=== PATIENT | female | born 1980 ===

== ENCOUNTER 2021-06-20 15:10 | Outpatient (REF) | payer MEDICAID, OTHER, SELFPAY ==
[2021-06-20 15:33] LABS: COVID-19 Test Negative (Negative)
== END 2021-06-20 15:11 | disposition home or self-care (01) ==
LOC: HO.LAB 15:10
PROVIDERS: Visit Provider Internal Medicine
DX: Z20.822 Contact with and (suspected) exposure to COVID-19 (principal)
CPT/HCPCS: 87635; C9803

== ENCOUNTER 2022-01-15 13:41 | Emergency (ER) | payer MEDICAID, OTHER, SELFPAY ==
[2022-01-15 14:22] VITALS: BP 150/86; PULSE 71; RESP 16; TEMP 36.4; O2SAT 97; BMI 41.8
[2022-01-15 14:51] LABS: MANUAL DIFF FLAG NO
[2022-01-15 14:54] LABS: Basophils Percent Auto 0.5 % (0-2); Eosinophils Absolute Auto 0.2 X10*3/uL (0.0-0.4); Hematocrit 41.2 % (37.0-47.0); Hemoglobin 13.1 g/dl (12.0-16.0); Imm Gran Abs Auto 0.02 X10*3/uL (0.00-0.03); Imm Gran Pct Auto 0.2 % (0.0-0.4); Lymphocytes Absolute Auto 2.8 X10*3/uL (1.2-4.9); Lymphocytes Percent Auto 32.4 % (20-40); Mean Corpuscular HGB Conc 31.8 g/dl (31.0-35.0); Mean Platelet Volume 11.2 fL (9.4-12.3); Monocytes Absolute Auto 0.7 X10*3/uL (0.1-1.2); Monocytes Percent Auto 8.1 % (2-11); Neutrophils Absolute Auto 4.8 x10*3/uL (2.0-8.3); Neutrophils Percent Auto 56.8 % (45-73); Platelet Count 260 X10*3/uL (160-400); Red Blood Count 4.68 X10*6/uL (4.20-5.50); Red Cell Distribution Width 13.1 % (11.0-16.0); White Blood Count 8.5 X10*3/uL (4.8-10.8)
[2022-01-15 15:12] LABS: Anion Gap 13 (12-20); Blood Urea Nitrogen 10 mg/dL (9-16); Calcium 8.5 mg/dL (8.4-10.2); Carbon Dioxide 28 mmol/L (22-29); Chloride 103 mmol/L (96-108); Creatinine Clr Calc Pharmacy 130.6; Estimated Glomerular Filt Rate > 60; Glucose Random 306 mg/dL (60-115); Sodium 140 mmol/L (135-145)
[2022-01-15 19:44] VITALS: BP 143/86; PULSE 64; RESP 18; TEMP 36.7; O2SAT 99
--- NOTE | 2022-01-15 20:03 | ED.GENADULT ---
HPI - General Adult General Chief complaint: General Medical Stated complaint: diabetic, not feeling well Time Seen by Provider: 01/15/22 19:49 Source: patient Mode of arrival: ambulatory Limitations: no limitations History of Present Illness HPI narrative: Patient diabetic metformin which she has not taken 3 months as she moved [place]. Otherwise patient feels okay no active complaints blood sugar was 306 on arrival no nausea no vomiting abdominal pain patient daughter was positive with COVID patient not vaccinated against COVID also patient has chronic varicose veins in the left leg no acute increase in size or pain Related Data Previous Rx's Medication Instructions Recorded ibuprofen 600 mg tablet 600 mg PO Q6H PRN pain #40 tabs 01/15/22 metformin 1,000 mg tablet 1,000 mg PO BID #180 tabs 01/15/22 Allergies Allergy/AdvReac Type Severity Reaction Status Date / Time Penicillins Allergy Rash Verified 01/15/22 14:21 Review of Systems Review of Systems: Yes all other systems are reviewed and are negative [facility] Social History Social History Advance Directives: No Physical Exam ED Vital Signs: Vital Signs - 24 hr 01/15/22 14:22 01/15/22 19:44 Temperature 97.5 F 98.1 F Pulse Rate 71 64 Respiratory Rate 16 18 Blood Pressure 150/86 H 143/86 H Pulse Oximetry 97 99 Oxygen Delivery Method Room Air Room Air BMI result Body Mass Index 41.8 Appearance: Alert. Oriented X3. No acute distress. Obese Eyes: PERRLA, No Nystagmus ENT: Pharynx normal. Oral Mucosa moist Neck: Normal inspection. Neck supple. CVS: Normal heart rate and rhythm. Pulses normal. Respiratory: No respiratory distress. Equal air entry bilateral, no wheezing/rales/rhonchi Abdomen: Soft and nontender. Bowel sounds are present, no mass palpable, no CVA tenderness Skin: Skin warm and dry. Normal skin color. Normal skin turgor. Extremities: No lower extremity edema. No calf tenderness varicose veins left calf area no calf tenderness as such Neuro: Oriented X 3. No motor deficit. No sensory deficit.No cerebellar signs , cranial nerves II-XII intact Medical Decision Making MDM Narrative Medical decision making narrative: Patient with hyperglycemia secondary to diabetes type 2 discharge patient home on metformin will give ibuprofen for chronic leg pain Lab Data Lab results reviewed: Yes I reviewed the patient's lab results. Result diagrams: 01/15/22 14:40 01/15/22 14:40 Labs: Lab Results 01/15/22 01/15/22 01/15/22 Range/Units 14:40 14:40 19:56 WBC 8.5 (4.8-10.8) X10*3/uL RBC 4.68 (4.20-5.50) X10*6/uL Hgb 13.1 (12.0-16.0) g/dl Hct 41.2 (37.0-47.0) % MCV 88.0 (80.0-98.0) fL MCH 28.0 (27.0-33.0) pg MCHC 31.8 (31.0-35.0) g/dl RDW 13.1 (11.0-16.0) % Plt Count 260 (160-400) X10*3/uL MPV 11.2 (9.4-12.3) fL Immature Gran % (Auto) 0.2 (0.0-0.4) % Neut % (Auto) 56.8 (45-73) % Lymph % (Auto) 32.4 (20-40) % Turner % (Auto) 8.1 (2-11) % Eos % (Auto) 2.0 (0-4) % Baso % (Auto) 0.5 (0-2) % Lymph # (Auto) 2.8 (1.2-4.9) X10*3/uL Turner # (Auto) 0.7 (0.1-1.2) X10*3/uL Eos # (Auto) 0.2 (0.0-0.4) X10*3/uL Baso # (Auto) 0.0 (0.0-0.2) X10*3/uL Abs Immat Gran (auto) 0.02 (0.00-0.03) X10*3/uL Absolute Neuts (auto) 4.8 (2.0-8.3) x10*3/uL Absolute Nucleated RBC 0.000 (0.0-0.012) X10*3/uL Nucleated RBC % (auto) 0.0 (0.0-0.2) /100WBC Sodium 140 (135-145) mmol/L Potassium 4.0 (3.3-5.1) mmol/L Chloride 103 (96-108) mmol/L Carbon Dioxide 28 (22-29) mmol/L Anion Gap 13 (12-20) BUN 10 (9-16) mg/dL Creatinine 0.79 (0.5-1.4) mg/dL Estim Creat Clear Calc 130.6 Estimated GFR > 60 Random Glucose 306 H (60-115) mg/dL Calcium 8.5 (8.4-10.2) mg/dL COVID-19 (YVETTE) Negative (Negative) COVID-19 Clin Com See Note Discharge Plan Discharge Clinical Impression: Diabetes mellitus Patient Disposition: Home, Self-Care Instructions: Type 2 Diabetes Management for Adults (ED) Additional Instructions: Drink plenty of fluids Diet and exercise for weight reduction Take medication as prescribed and follow-up with your PCP Prescriptions: New metformin 1,000 mg tablet 1,000 mg PO BID Qty: 180 3RF ibuprofen 600 mg tablet 600 mg PO Q6H PRN (Reason: pain) Qty: 40 0RF Referrals: Roma Foster MD [Physician] - 1 week Interventions: ED Discharge Assessment Last Done: 01/15/22 20:42 Discharge Date/Time: 01/15/22 20:43
[2022-01-15 20:20] LABS: COVID-19 Test Negative (Negative); IDNOW Serial# 16C4AD1C
[2022-01-15] MEDS: metFORMIN HCl 1,000 MG TABLET 1000 MG PO (20:40)
[2022-01-15] MEDS: Ibuprofen 600 MG TABLET 800 MG PO (20:40)
== END 2022-01-15 20:43 | disposition home or self-care (01) ==
PROVIDERS: Emergency Provider Internal Medicine
DX: E11.9 Type 2 diabetes mellitus without complications (principal); Z79.84 Long term (current) use of oral hypoglycemic drugs; Z79.899 Other long term (current) drug therapy
CPT/HCPCS: 36415; 80048; 85025; 87635; 99283

== ENCOUNTER 2022-09-17 07:45 | Emergency (ER) | payer MEDICAID, OTHER, SELFPAY ==
--- NOTE | ~2022-09-17 | XR_ITS ---
EXAMINATION: XR KNEE, LEFT CLINICAL INFORMATION: Left knee pain. COMPARISON: None available. TECHNIQUE: Four views of the left knee. FINDINGS: There is mild loss of medial and patellofemoral compartment joint space with moderate periarticular spurring. A tiny calcification or loose body is seen in the lateral compartment on AP view. Mild suprapatellar joint effusion seen. No bony erosive changes. XR/XR knee LT 4V IMPRESSION: 1. Degenerative arthritic changes medial and patellofemoral compartment with moderate periarticular spurring. 2. Small calcification or loose body in the lateral compartment. 3. Mild suprapatellar joint effusion.
--- NOTE | ~2022-09-17 | US_ITS ---
EXAMINATION: US VENOUS ULTRASOUND WITH DOPPLER LOWER EXTREMITY, LEFT CLINICAL INFORMATION: Left leg pain. COMPARISON: None available. TECHNIQUE: Ultrasound of the deep veins is performed from the hip to the calf with compression sonography and color and pulse Doppler assessment. Spectral analysis with color-flow imaging is performed. FINDINGS: There is normal venous compression and respiratory variation and augmented flow. The visualized common femoral vein, superficial femoral vein, profunda femoral vein, popliteal vein, and the trifurcation region shows no evidence of deep venous thrombosis. No Weber's cyst is seen. US/US venous duplex LE LT IMPRESSION: No DVT demonstrated in the left lower extremity.
[2022-09-17 07:58] VITALS: BP 141/75; PULSE 75; RESP 18; TEMP 36.6; O2SAT 97; BMI 38.0
--- NOTE | 2022-09-17 08:11 | ED_ITS ---
HPI - General Adult General Chief complaint: Extremity Problem Stated complaint: Left Leg Knee Pain No Injury Time Seen by Provider: 09/17/22 07:50 Source: patient Limitations: no limitations History of Present Illness HPI narrative: This is a 41 years old patient presented to emergency department complaining of left knee pain atraumatic, she denies any fever chills. The symptoms have been ongoing for 4 days, she came via car ambulatory to the ED Onset (ago): day(s) (4) Location: left and lower extremity Radiation: non-radiation Severity: moderate Relieving factors: none Exacerbating factors: movement Associated symptoms: denies other symptoms Related Data Previous Rx's Medication Instructions Recorded ibuprofen 600 mg tablet 600 mg PO Q6H PRN pain #40 tabs 01/15/22 metformin 1,000 mg tablet 1,000 mg PO BID #180 tabs 01/15/22 ibuprofen 800 mg tablet 800 mg PO Q8H PRN pain #20 tabs 09/17/22 Allergies Allergy/AdvReac Type Severity Reaction Status Date / Time Penicillins Allergy Rash Verified 09/17/22 07:58 Review of Systems Constitutional: Constitutional: Reports no additional constitutional complaints ENT: Reports system reviewed and no additional complaints, except as documented Cardiovascular: Cardiovascular: Reports no additional cardiovascular complaints PMFSH Past Medical History PMFSH Narrative: Type 2 diabetes Social History Social History Smoked in Last 30 Days: No Use of substances other than those prescribed or required for medical reasons: No Advance Directives: No Patient : No Physical Exam ED Vital Signs: Vital Signs - 24 hr 09/17/22 07:58 09/17/22 08:28 09/17/22 11:34 Temperature 97.8 F 98.1 F Pulse Rate 75 65 Respiratory Rate 18 18 16 Blood Pressure 141/75 H 148/64 H 146/81 H Pulse Oximetry 97 98 99 Oxygen Delivery Method Room Air Room Air Room Air BMI result Body Mass Index 38.0 Const General: cooperative Nutritional Appearance: well nourished Orientation/consciousness: patient oriented x3 Limitations: no limitations HENMT Head: Yes normal to inspection Ears: hearing grossly normal bilaterally General nose exam: Normal external nose present Face and sinus: Yes normal facial exam Neck Neck: Yes normal visual inspection Chest Chest palpation & inspection: normal inspection of the chest Resp Effort & Inspection: normal respiratory effort Cardio Rate: regular rate GI Inspection: Yes normal to inspection Skin General skin exam: no rashes or lesions noted Neuro General: patient oriented x3 Extrem Other: Examination the left lower extremity shows no effusion knee he is stable negative Prema test negative anterior drawer test, no redness seen, good pulses in the foot Medications Administered Discontinued Medications Generic Name Dose Route Start Last Admin Trade Name Freq PRN Reason Stop Dose Admin Ibuprofen 800 mg 09/17/22 09:28 09/17/22 09:32 Ibuprofen 800 Mg Tablet PO 09/17/22 09:29 800 mg ONCE ONE Administration Medical Decision Making Medical Decision Making [facility] Narrative: Patient presented with left knee pain and going to get an x-ray of the knee, also get an ultrasound to rule out DVT, the pain is at traumatic Differential Diagnosis Differential Diagnoses: The differential diagnosis associated with the presentation includes Meniscal injury/knee effusion/DVT Independent Interpretation I performed an independent interpretation of an: Plain X-Ray and Ultrasound Interpretation: PLAIN X-RAY WAS READ BY ME HEBER NO FRACTURE NO EFFUSION Radiology Impression Discussion of test interpretation with radiology: I have reviewed the radiologist's reading. Radiologist Impression: None available. TECHNIQUE: Ultrasound of the deep veins is performed from the hip to the calf with compression sonography and color and pulse Doppler assessment. Spectral analysis with color-flow imaging is performed. FINDINGS: There is normal venous compression and respiratory variation and augmented flow. The visualized common femoral vein, superficial femoral vein, profunda femoral vein, popliteal vein, and the trifurcation region shows no evidence of deep venous thrombosis. No Weber's cyst is seen. US/US venous duplex LE LT IMPRESSION: No DVT demonstrated in the left lower extremity. Dictated By: Olaf Tran Signed By: <Electronically signed by Olaf? Marc in OV> 09/17/22 0957 Independent Historian Clinical information obtained from an independent historian. History obtained from or confirmed by: Friend Prescription Management I considered prescription management with: Pain Medication Discharge Plan Discharge Clinical Impression: Acute knee pain Patient Disposition: Home, Self-Care Instructions: Knee Pain (ED) Additional Instructions: FOLLOW-UP WITH ORTHOPEDIST CALL AND MAKE AN APPOINTMENT RETURN IF YOU WORSE Prescriptions: New ibuprofen 800 mg tablet 800 mg PO Q8H PRN (Reason: pain) Qty: 20 0RF Rx Instructions: TAKE EVERY 8 H NEEDED FOR KNEE PAIN No Action metformin 1,000 mg tablet 1,000 mg PO BID Qty: 180 3RF ibuprofen 600 mg tablet 600 mg PO Q6H PRN (Reason: pain) Qty: 40 0RF Referrals: Phi Iverson MD [Physician] - 2 days
[2022-09-17 08:28] VITALS: BP 148/64; RESP 18; TEMP 36.7; O2SAT 98
[2022-09-17] MEDS: Ibuprofen 800 MG TABLET PO (09:32)
[2022-09-17 11:34] VITALS: BP 146/81; PULSE 65; RESP 16; O2SAT 99
== END 2022-09-17 12:43 | disposition home or self-care (01) ==
PROVIDERS: Emergency Provider Emergency Medicine
DX: M25.562 Pain in left knee (principal); M79.662 Pain in left lower leg; Z79.84 Long term (current) use of oral hypoglycemic drugs; Z79.899 Other long term (current) drug therapy
CPT/HCPCS: 73564; 93971; 99284

== ENCOUNTER 2022-10-21 07:06 | Outpatient (REF) | payer MEDICAID, OTHER, SELFPAY ==
--- NOTE | ~2022-10-21 | XR_ITS ---
EXAMINATION:. XR KNEE AP STANDING CLINICAL INFORMATION: Bilateral knee pain COMPARISON: 09/17/2022 TECHNIQUE: AP bilateral standing view of the knees was obtained. Left knee patella view. [place] view left knee. FINDINGS: AP standing view of both knees demonstrates severe narrowing of the medial joint space compartment of the right knee. The lateral joint space compartment is maintained. Marginal spurring is seen about the medial and lateral joint space compartments. Views of the left knee demonstrate medial and lateral joint space compartments to be maintained. There is marginal spurring seen about the lateral joint space compartment. There is a 6 mm smoothly circumscribed density consistent with a loose body present. There is prominent spurring at the patellofemoral joint involving both medial and lateral facets. XR/XR knee LT 1V IMPRESSION: 1. Significant degenerative change of the medial aspect of the right knee on single AP standing view. 2. A 6 mm bony density overlying the left knee joint space possibly representing a loose body. Prominent patellofemoral joint degenerative change, left knee.
--- NOTE | ~2022-10-21 | XR_ITS ---
EXAMINATION:. XR KNEE AP STANDING CLINICAL INFORMATION: Bilateral knee pain COMPARISON: 09/17/2022 TECHNIQUE: AP bilateral standing view of the knees was obtained. Left knee patella view. [place] view left knee. FINDINGS: AP standing view of both knees demonstrates severe narrowing of the medial joint space compartment of the right knee. The lateral joint space compartment is maintained. Marginal spurring is seen about the medial and lateral joint space compartments. Views of the left knee demonstrate medial and lateral joint space compartments to be maintained. There is marginal spurring seen about the lateral joint space compartment. There is a 6 mm smoothly circumscribed density consistent with a loose body present. There is prominent spurring at the patellofemoral joint involving both medial and lateral facets. XR/XR knee standing BI IMPRESSION: 1. Significant degenerative change of the medial aspect of the right knee on single AP standing view. 2. A 6 mm bony density overlying the left knee joint space possibly representing a loose body. Prominent patellofemoral joint degenerative change, left knee.
== END 2022-10-21 07:07 | disposition home or self-care (01) ==
LOC: HO.HOSX 07:06
PROVIDERS: Visit Provider Physician Assistant
DX: M17.12 Unilateral primary osteoarthritis, left knee (principal); M25.561 Pain in right knee
CPT/HCPCS: 20610; 73560; 73565; 99202; J1040

== ENCOUNTER 2022-11-26 16:58 | Outpatient (RCR) | payer MEDICAID, OTHER, SELFPAY ==
--- NOTE | 2022-11-27 08:03 | MHC.PT.EP ---
[facility] [place] Office [place] Office [place] Office [address] [phone] F: [phone] F: [phone] F: [phone] F: [phone] Physical Therapy Plan of Care Date of Evaluation: Date of Surgery: N/A Diagnosis: unilateral osteoarthritis, left knee Assessment: Pt is a pleasant 42yo F who presents to PT with L knee pain for about ~4 months. Pt presents to PT with current impairments in pain, decreased L knee ROM, decreased quad strength, decreased hip/glute strength, genu valgum, and impaired gait. She is limited functionally by sitting>standing, stairs, prolonged walking, and bending/squatting. She is an excellent candidate for skilled PT in order to address current impairments to facilitate return to PLOF. She is recommended to be seen 2x/week for 4 weeks and will be reassessed at that time. Frequency and Duration: The patient will be seen 2x/week for 4 weeks Short Term Goals: Pt will be I with HEP to promote self management of symptoms Pt will improve L quad strength by 1/2 grade Group Home Goals: Pt will perform sit>stand transitions with minimal to no pain consistently Pt will demonstrate ability to squat and pick object up from floor with minimal to no pain Pt will perform standing and walking on even and uneven surfaces > 20 min with minimal to no discomfort Treatment Plan: Modalities to reduce pain, spasms and effusion. Manual therapy to restore motion and function. Therapeutic exercise to improve strength and flexibility. Neuromuscular re-education for posture and balance. Therapeutic activities to return to functional activities of daily living. Electronically signed by: Elsi Rodriguez, PT, DPT Please sign and return to therapist. Thank you for your referral.
--- NOTE | 2023-01-17 13:42 | MHC.PT.DC ---
[facility] [place] Office [place] Office [place] Office [address] Jair Hernandez [address] [phone] F: [phone] F: [phone] F: [phone] F: [phone] Physical Therapy Discharge Report Diagnosis: unilateral osteoarthritis, left knee Date of Surgery: N/A Date of Evaluation: 11/26/22 Date of Discharge: 01/17/23 Treatments to Date: 1 Cancellations to Date: No Shows to Date: Discharge Status: Discharge Summary: Pt was evaluated for PT on 11/26/22. She has not attended since initial PT evaluation. Pt is being D/C from skilled PT as she has not attended in > 30 days. Pt current level of function unknown at this time. Electronically signed by: Elsi Rodriguez, PT, DPT Please sign and return to therapist. Thank you for your referral.
== END 2023-01-17 13:42 | disposition home or self-care (01) ==
LOC: HO.PT 16:58
PROVIDERS: Visit Provider Physician Assistant
DX: M17.12 Unilateral primary osteoarthritis, left knee (principal)
CPT/HCPCS: 97110; 97161

== ENCOUNTER 2023-01-13 10:01 | Outpatient (REF) | payer MEDICAID, OTHER, SELFPAY ==
[2023-01-13 11:50] LABS: MANUAL DIFF FLAG NO
[2023-01-13 12:13] LABS: Basophils Absolute Auto 0.1 X10*3/uL (0.0-0.2); Basophils Percent Auto 0.7 % (0-2); Eosinophils Absolute Auto 0.3 X10*3/uL (0.0-0.4); Eosinophils Percent Auto 4.5 % (0-4); Hematocrit 40.4 % (37.0-47.0); Hemoglobin 13.1 g/dl (12.0-16.0); Imm Gran Abs Auto 0.02 X10*3/uL (0.00-0.03); Imm Gran Pct Auto 0.3 % (0.0-0.4); Lymphocytes Absolute Auto 2.7 X10*3/uL (1.2-4.9); Lymphocytes Percent Auto 35.6 % (20-40); Mean Corpuscular HGB Conc 32.4 g/dl (31.0-35.0); Mean Corpuscular Hemoglobin 28.8 pg (27.0-33.0); Mean Corpuscular Volume 88.8 fL (80.0-98.0); Mean Platelet Volume 11.1 fL (9.4-12.3); Monocytes Absolute Auto 0.7 X10*3/uL (0.1-1.2); Monocytes Percent Auto 9.9 % (2-11); Neutrophils Absolute Auto 3.7 x10*3/uL (2.0-8.3); Platelet Count 244 X10*3/uL (160-400); Red Blood Count 4.55 X10*6/uL (4.20-5.50); Red Cell Distribution Width 13.1 % (11.0-16.0); White Blood Count 7.5 X10*3/uL (4.8-10.8)
[2023-01-13 14:40] LABS: Alanine Aminotransferase 9 U/L (0-31); Albumin Level 3.6 g/dL (3.5-5.0); Alkaline Phosphatase 80 U/L (39-117); Anion Gap 12 (12-20); Aspartate Amino Transferase 14 U/L (5-31); Bilirubin Direct 0.1 mg/dL (0.0-0.5); Bilirubin Total 0.4 mg/dL (0.0-1.0); Blood Urea Nitrogen 11 mg/dL (9-16); Calcium 8.5 mg/dL (8.4-10.2); Carbon Dioxide 28 mmol/L (22-29); Chloride 103 mmol/L (96-108); Cholesterol 172 mg/dL; Estimated Glomerular Filt Rate > 60; Glucose Random 142 mg/dL (60-115); HDL Cholesterol 52 mg/dL; LDL Cholesterol Calculated 103 mg/dl; Potassium 3.7 mmol/L (3.3-5.1); Sodium 139 mmol/L (135-145); Total Protein 6.8 g/dL (6.5-8.0); Triglycerides 88 mg/dL
[2023-01-13 14:58] LABS: TSH reflex Free T4 2.96 uIU/mL (0.32-4.0)
[2023-01-14 04:59] LABS: HBc Num1 0.11 S/CO (0.00-0.79); HIV AB/AG Nonreactive (Nonreactive); HIV Num 1 0.05 S/CO (0.00-0.99); Hepatitis A Antibody IgM 0.25 Index (0-0.79); Hepatitis B Core Antibody Nonreactive (Nonreactive); Hepatitis B Surface Antigen Negative (Negative); ~HepC Num1 0.11 S/CO (0.00-0.79); ~Hepatitis A Antibody IgM Nonreactive (Nonreactive); ~Hepatitis B Surface Antibody NONREACTIVE (Nonreactive); ~Hepatitis C Antibody Nonreactive (Nonreactive)
[2023-01-14 05:06] LABS: ~Hepatitis C Antibody Nonreactive (Nonreactive)
== END 2023-01-13 10:02 | disposition home or self-care (01) ==
LOC: HO.HHCL 10:01
PROVIDERS: Visit Provider Pediatrics
DX: Z11.4 Encounter for screening for human immunodeficiency virus [HIV] (principal); E11.9 Type 2 diabetes mellitus without complications
CPT/HCPCS: 36415; 80048; 80061; 80076; 84443; 85025; 86704; 86706; 86709; 86803; 87340; 87389

== ENCOUNTER 2023-03-06 09:07 | Outpatient (AMB) | payer SELFPAY ==
--- NOTE | 2023-03-06 09:12 | MHC.OFFVIS ---
Intake Vital Signs 03/06/23 09:14 Height 5 ft 8 in Weight 250 lb BMI 38.0 Intake Visit Reasons: ov-Osteoarthritis of left knee Intake Note: Azra 41 year old female who presents today for a follow up left knee OA, last injection 10/21/22. Patient reports injection provided relief for about 3 months. States the past 2 weeks she has been having pain and welling. She is requesting to repeat injection. She attended PT that provided some relief. Allergies Penicillins Allergy (Verified 10/21/22 12:37) Rash HPI ov-Osteoarthritis of left knee HPI Details 42-year-old female who returns to the office today for a follow-up of left knee pain. She states she has pain and swelling in her knee for the past 2 weeks. After having the injection she has been able to participate in daily activities. She did attend a few visits of PT. She takes Tylenol for her pain with mild relief. She had her last injection 10/21/22 which provided her relief for about 3 months. She has a history of diabetes. Her sugar level is currently controlled. 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 Review of Systems Const All systems reviewed & are unremarkable except as noted in HPI and below Physical Exam Vital Signs: BMI result Body Mass Index 38.0 Const General: cooperative, healthy appearing, comfortable, no acute distress, well developed and alert Orientation/consciousness: patient oriented x3 HEENT Head: Yes normal to inspection, Yes normocephalic and Yes atraumatic Eyes General: appearance normal, both eyes and all related structures Resp Effort & Inspection: normal respiratory effort and able to speak in complete sentences Cardio Rate: regular rate Peripheral pulses: Peripheral pulses 2+ throughout GI Palpation (GI): Soft to palpation Skin Lesions: no lesions Rashes: no rashes Neuro General: patient oriented x3 Extrem Other: Left knee skin intact, no erythema or joint effusion. Tenderness along the lateral joint line. Full ROM with crepitus. Negative Vaishali?s. No ligamentous laxity. NVI. Office Procedures Joint Injection/Drain Joint Injection/Drain Primary Site: left knee Prep: site was prepped using aseptic technique, ethochloride spray was applied and injection warnings given Injected: 80 mg of, DepoMedrol, with 8 mL of, 1% plain lidocaine and in the joint Approach Used: anterolateral Procedure: The patient tolerated the procedure well and there was some relief with the local anesthesia Coding 14120 - Glenohumeral/Tronchanteric Bursa/Intraarticular Procedure code (CPT) selection complete Results Reviewed Results Reviewed: 03/06/23 09:23 Lidocaine HCl 2 % MPF [Xylocaine 2 % MPF] 5 ml .ROUTE .STK-MED ONE methylPREDNISolone acetate [DEPO-MedroL] 80 mg .ROUTE .STK-MED ONE Assessment & Plan Assessment & Plan (1) Osteoarthritis of left knee: Code(s): M17.12 - Unilateral primary osteoarthritis, left knee Qualifiers: Osteoarthritis type: primary Qualified Code(s): M17.12 - Unilateral primary osteoarthritis, left knee Plan We discussed options today which include steroid injection. They did consent to move forward with the injection, which was tolerated well. I recommended rest, ice and elevation and OTC anti-inflammatories PRN for discomfort. She was also given a handout of home exercises in the office today. We discussed their diabetes and the effect the steroid can have on their blood glucose levels; therefore, they will continue to monitor these very closely over the next 72 hours. If there are any concerns, they should report to the ED immediately. Medications: Refilled ibuprofen TAKE EVERY 8 H NEEDED FOR KNEE PAIN 800 mg PO Q8H PRN 20 tabs 0RF pain Patient Instructions: Scribed for Piper Camacho PA-C, by Omari uTcker medical donation professional, on 03/06/2023 at 9:15 AM SHIRAZ. Piper Solares PA-C, have personally reviewed and agree with the information entered by the scribe. Coding Level of Care Code Est Pt Level 3 (22139) Diagnoses Primary osteoarthritis of left knee M17.12 Osteoarthritis type: primary CPT Codes Coding - Joint 7: 09967 - Glenohumeral/Tronchanteric Bursa/Intraarticular ([id number])
[2023-03-06 09:14] VITALS: BMI 38.0
== END 2023-03-06 09:52 | disposition home or self-care (01) ==
PROVIDERS: Visit Provider Physician Assistant
DX: M17.12 Unilateral primary osteoarthritis, left knee (principal)
CPT/HCPCS: 20610; 99213

== ENCOUNTER → 2023-03-06 09:07 | Outpatient (BNVA) | payer MEDICAID, OTHER, SELFPAY | PROVIDERS: Visit Provider Physician Assistant | DX: M17.12 Unilateral primary osteoarthritis, left knee (principal) | CPT/HCPCS: 20610; 99212; J1040 ==

== ENCOUNTER 2023-10-16 11:41 | Outpatient (REF) | payer MEDICAID, OTHER, SELFPAY ==
[2023-10-16 13:02] LABS: MANUAL DIFF FLAG NO
[2023-10-16 13:12] LABS: Basophils Percent Auto 0.5 % (0-2); Eosinophils Absolute Auto 0.2 X10*3/uL (0.0-0.4); Eosinophils Percent Auto 2.2 % (0-4); Hematocrit 40.8 % (37.0-47.0); Hemoglobin 13.6 g/dl (12.0-16.0); Imm Gran Abs Auto 0.05 X10*3/uL (0.00-0.03); Imm Gran Pct Auto 0.6 % (0.0-0.4); Lymphocytes Absolute Auto 2.9 X10*3/uL (1.2-4.9); Lymphocytes Percent Auto 33.3 % (20-40); Mean Corpuscular HGB Conc 33.3 g/dl (31.0-35.0); Mean Corpuscular Hemoglobin 29.6 pg (27.0-33.0); Mean Corpuscular Volume 88.9 fL (80.0-98.0); Mean Platelet Volume 11.2 fL (9.4-12.3); Monocytes Absolute Auto 0.8 X10*3/uL (0.1-1.2); Monocytes Percent Auto 9.3 % (2-11); Neutrophils Absolute Auto 4.6 x10*3/uL (2.0-8.3); Neutrophils Percent Auto 54.1 % (45-73); Platelet Count 256 X10*3/uL (160-400); Red Blood Count 4.59 X10*6/uL (4.20-5.50); Red Cell Distribution Width 13.2 % (11.0-16.0); White Blood Count 8.6 X10*3/uL (4.8-10.8)
[2023-10-16 13:48] LABS: Alanine Aminotransferase 10 U/L (0-31); Albumin Level 3.8 g/dL (3.5-5.0); Alkaline Phosphatase 87 U/L (39-117); Anion Gap 14 (12-20); Aspartate Amino Transferase 14 U/L (5-31); Bilirubin Total 0.4 mg/dL (0.0-1.0); Blood Urea Nitrogen 8 mg/dL (9-16); Calcium 8.7 mg/dL (8.4-10.2); Carbon Dioxide 25 mmol/L (22-29); Chloride 104 mmol/L (96-108); Cholesterol 168 mg/dL (<200); Estimated Glomerular Filt Rate > 60; Glucose Random 179 mg/dL (60-115); HDL Cholesterol 56 mg/dL (>40); LDL Cholesterol Calculated 97 mg/dL (<100); Potassium 4.1 mmol/L (3.3-5.1); Sodium 139 mmol/L (135-145); Total Protein 6.9 g/dL (6.5-8.0); Triglycerides 79 mg/dL (<150)
[2023-10-16 14:02] LABS: Reflex LDLD? No
[2023-10-16 14:05] LABS: Folate 14.2 ng/mL (> or = 4.0); Vitamin B12 367 pg/mL (200-900)
[2023-10-16 14:06] LABS: TSH reflex Free T4 1.02 uIU/mL (0.32-4.0)
[2023-10-17 08:48] LABS: Follicle Stimulating Hormone 5.3 mIU/mL
[2023-10-23 23:18] LABS: Estradiol Ultra Sensitive 15 pg/mL
== END 2023-10-16 11:42 | disposition home or self-care (01) ==
LOC: HO.HHCL 11:41
PROVIDERS: Visit Provider Family Medicine
DX: N93.9 Abnormal uterine and vaginal bleeding, unspecified (principal); E11.69 Type 2 diabetes mellitus with other specified complication
CPT/HCPCS: 36415; 80053; 80061; 82607; 82670; 82746; 83001; 84443; 85025

== ENCOUNTER 2023-12-29 13:26 | Outpatient (AMB) | payer SELFPAY ==
[2023-12-29 13:33] VITALS: BMI 38.0
--- NOTE | 2023-12-29 13:34 | MHC.OFFVIS ---
Vital Signs 12/29/23 13:33 Height 5 ft 8 in Weight 250 lb BMI 38.0 Intake Visit Reasons: OV- LT knee osteoarthritis , wants INJ Intake Note: Azra is a 43 yo right hand dominant female who presents today for left knee OA. Patient states would like to repeat cortisone injection today. Last injected 03/06/23. Allergies Penicillins Allergy (Verified 12/29/23 13:36) Rash HPI HPI OV- LT knee osteoarthritis , wants INJ: Details: Azra is a 43-year-old female who presents today for a follow-up of left knee osteoarthritis. She would like to repeat the cortisone injection. Last injection was given on 03/06/2023. 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 Review of Systems Const All systems reviewed & are unremarkable except as noted in HPI and below Physical Exam Vital Signs: BMI result Body Mass Index 38.0 Const General: cooperative, healthy appearing, comfortable and no acute distress Orientation/consciousness: patient oriented x3 HEENT Head: Yes normal to inspection, Yes normocephalic and Yes atraumatic Eyes General: appearance normal, both eyes and all related structures Neck Neck: Yes normal visual inspection and Yes no JVD Chest Chest palpation & inspection: normal inspection of the chest Resp Effort & Inspection: normal respiratory effort Auscultation: clear to auscultation bilaterally, crackles (no), rales (no), rhonchi (no) and wheezes (no) Cardio Jugular venous distension: no JVD Rate: regular rate Rhythm: regular rhythm Heart sounds: S1 normal heart sound present, S2 normal heart sound present, Murmur heart sound present (no) and Rub heart sound present (no) Peripheral pulses: Peripheral pulses 2+ throughout GI Palpation (GI): Soft to palpation Skin Lesions: no lesions Rashes: no rashes Neuro General: patient oriented x3 Extrem Other: Left knee skin intact, no erythema or joint effusion. Tenderness along the lateral joint line. Full ROM with crepitus. Negative Vaishali?s. No ligamentous laxity. NVI. General: Yes normal to inspection, Yes no pedal edema and Yes no calf tenderness Psych Appearance: grossly normal Mental Status: mental status grossly normal Speech and movement: Normal speech and movement present Office Procedures Joint Injection/Aspiration Joint Injection/Aspiration Primary Site: left knee Prep: site was prepped using aseptic technique, ethochloride spray was applied and injection warnings given Injected: 40 mg of, DepoMedrol, with 8 mL of, 1% plain lidocaine and in the joint Approach Used: anterolateral Procedure: The patient tolerated the procedure well and there was some relief with the local anesthesia Coding 88260 - Glenohumeral/Tronchanteric Bursa/Intraarticular Procedure code (CPT) selection complete Assessment & Plan Assessment & Plan (1) Osteoarthritis of left knee: Code(s): M17.12 - Unilateral primary osteoarthritis, left knee Category: Medical Qualifiers: Osteoarthritis type: primary Qualified Code(s): M17.12 - Unilateral primary osteoarthritis, left knee Plan We discussed options today, which include cortisone injection. The patient did consent to move forward with the left knee cortisone injection, which was tolerated well. I recommended rest, ice, and elevation and OTC anti-inflammatories as needed for discomfort. If symptoms persist over the next 6-8 weeks, they will contact the office, otherwise as needed. Patient Instructions: Scribed for Piper Camacho PA-C, by Jed Zuleta medical historian, on 12/29/2023 at 1:30 PM EST. IPiper PA-C, have personally reviewed and agree with the information entered by the scribe. Coding Level of Care Code Est Pt Level 3 (28495) Diagnoses Primary osteoarthritis of left knee M17.12 Osteoarthritis type: primary CPT Codes Coding - Joint 7: 03018 - Glenohumeral/Tronchanteric Bursa/Intraarticular ([id number])
== END 2023-12-29 14:01 | disposition home or self-care (01) ==
PROVIDERS: PCP Family Medicine; Visit Provider Physician Assistant
DX: M17.12 Unilateral primary osteoarthritis, left knee (principal)
CPT/HCPCS: 20610; 99213

== ENCOUNTER → 2023-12-29 13:26 | Outpatient (BNVA) | payer MEDICAID, OTHER, SELFPAY | PROVIDERS: PCP Family Medicine; Visit Provider Physician Assistant | DX: M17.12 Unilateral primary osteoarthritis, left knee (principal) | CPT/HCPCS: 20610; 99212; J1010 ==

== ENCOUNTER → 2024-01-12 15:45 | Outpatient (BNV) | payer SELFPAY | PROVIDERS: PCP Family Medicine; Visit Provider Radiology Diagnostic Radiology | DX: Z12.31 Encounter for screening mammogram for malignant neoplasm of breast (principal) | CPT/HCPCS: 77063; 77067 ==

== ENCOUNTER 2024-01-12 16:09 | Outpatient (REF) | payer SELFPAY ==
--- NOTE | ~2024-01-12 | MM_ITS ---
EXAMINATION: MM SCREENING DIGITAL BREAST TOMOSYNTHESIS, BILATERAL CLINICAL INFORMATION: Screening. Asymptomatic. COMPARISON: Mammography: This is a baseline study. TECHNIQUE: Digital breast tomosynthesis is performed in both the craniocaudal and mediolateral oblique views along with computer-aided detection (CAD). Synthesized 2D images are generated from the tomosynthesis. FINDINGS: The breasts are almost entirely fatty (ACR BI-RADS breast composition Category a). There are no significant masses, abnormal calcifications, or other abnormalities. MM/MM tomosynthesis screening BI IMPRESSION: No mammographic evidence of malignancy. ASSESSMENT: BI-RADS BI-RADS 1 - Negative RECOMMENDATION: Routine annual mammography screening. 1 year F/U This examination should not preclude the clinical evaluation of a suspicious palpable abnormality. This patient's information was entered into a reminder system with a target due date for their next mammogram.
== END 2024-01-12 16:10 | disposition home or self-care (01) ==
LOC: HO.MAMMO 16:09
PROVIDERS: PCP Family Medicine; Visit Provider Family Medicine
DX: Z12.31 Encounter for screening mammogram for malignant neoplasm of breast (principal)
CPT/HCPCS: 77063; 77067

== ENCOUNTER 2024-08-02 12:32 | Outpatient (REF) | payer MEDICAID, OTHER, SELFPAY ==
[2024-08-02 13:13] LABS: Appearance Urine Clear; Color Urine Yellow; Glucose Urine UA Negative (Negative); Leukocyte Esterase Urine Negative (Negative); Nitrite Urine Negative (Negative); PH 5.5 (5.0-9.0); Specific Gravity - Urine 1.025 (1.005-1.025); Urine Blood Negative (Negative); Urine Ketones Negative (Negative); Urine Protein Negative (Neg-Trace)
[2024-08-02 13:20] LABS: Bacteria Urine None Seen (None Seen); Hyaline Casts Urine 0-2 /LPF (0-2); RBC Urine 0-2 /HPF (0-2); Squamous Epithelial Cell Urine 0-2 /HPF (0-2); WBC Urine 0-5 /HPF (0-5)
[2024-08-02 13:41] LABS: Creatinine Urine 124.58 mg/dL; Microalbum/Creatinine Ratio Ur 7.2 ug/mg cr (<30)
[2024-08-02 13:52] LABS: Alanine Aminotransferase 13 U/L (0-31); Albumin Level 3.8 g/dL (3.5-5.0); Alkaline Phosphatase 94 U/L (39-117); Anion Gap 12 (12-20); Aspartate Amino Transferase 20 U/L (5-31); Bilirubin Total 0.2 mg/dL (0.0-1.0); Blood Urea Nitrogen 11 mg/dL (9-16); Calcium 8.7 mg/dL (8.4-10.2); Carbon Dioxide 28 mmol/L (22-29); Chloride 104 mmol/L (96-108); Cholesterol 185 mg/dL (<200); Estimated Glomerular Filt Rate > 60; Glucose Random 116 mg/dL (60-115); HDL Cholesterol 58 mg/dL (>40); LDL Cholesterol Calculated 109 mg/dL (<100); Potassium 3.7 mmol/L (3.3-5.1); Sodium 140 mmol/L (135-145); Total Protein 7.4 g/dL (6.5-8.0); Triglycerides 94 mg/dL (<150)
[2024-08-02 14:01] LABS: TSH reflex Free T4 1.46 uIU/mL (0.32-4.0); Vitamin D 25-OH Total 21.1 ng/mL (>30)
[2024-08-02 14:15] LABS: Vitamin B12 360 pg/mL (200-900)
[2024-08-02 14:23] LABS: Reflex LDLD? No
--- OUTSIDE RECORDS SUMMARY | 2024-08-02 14:41 | XMS_ITS | Encounter Summary ---
Author Organization [employer] Address [address] [place] [address] [address] [place] [address] Care Team Providers Care Site Supervising Technical Operator Name Role Phone Cielo Altman MD Primary Care Provider [phone] Reason for Visit * Reason Comments Pre-visit Planning Pre-visit planning - unable to LVM phone number sounded busy Encounter Details Date Type Department Care Team ([facility] st Contact Info) Description 07/20/2024 Patient Outreach [facility] [address] [place], [place] [id number] Cielo Altman MD [address] [place] [address] Pre-visit Planning (Pre-visit planning - unable to LVM phone number sounded busy ) Social History Tobacco Use Types Packs/Day Years Used Date Smoking Tobacco: Never Smokeless Tobacco: Never Alcohol Use Standard Drinks/Week Comments Never 0 (1 standard drink = 0.6 oz pur e alcohol) Depression Answer Date Recorded Patient Health Questionnaire-9 Score 3 01/19/2024 Patient Health Questionnaire-9 Score 3 01/19/2024 Last PHQ-9: Questionnaire Data Not on file 0 01/19/2024 Housing Stability Answer Date Recorded What is your housing situation today? I have nile jones 10/08/[address] you li ve. Do you have problems with any of the following? Mold 10/08/2023 Food Insecurity Answer Date Recorded Within the past 12 months, y ou worried that your food would run out before you got money to buy more: Sometimes True 2023 Within the past 12 months,th e food you bought just didn't last and you didn't have enough money to get more: Sometimes True 10/08/2023 Transportation Answer Date Recorded In the past 12 months, has l ack of transportation kept you from medical appts, meetings, work or from getting things needed for daily living? No 10/08/2023 Utilities Answer Date Recorded In the past 12 months, has t he electric, gas, oil or water company threatened to shut off services in your home? Yes 10/08/2023 Depression Answer Date Recorded Patient Health Questionnaire-2 Score 1 01/19/2024 Comments No Sex and Gender Information Value Date Recorded Sex Assigned at Female 04/02/2022 2:33 PM EDT Legal Sex Female 2:33 PM EDT Gender Identity Female 04/02/2022 2:33 PM EDT Sexual Orientation Straight 01/10/2023 11 :03 AM EDT documented as of this encounter Progress Notes * Марина Danielle - 07/20/2024 11:06 AM EST [facility] placed outbound call to patient to complete pre-visit planning. No answer at this time. Patient name and were not confirmed. CC unable to LVM phone number [phone] sounded busy. documented in this encounter Plan of Treatment Not on file documented as of this encounter Visit Diagnoses Not on filedocumented in this encounter Additional Health Concerns Assessment Noted Time PHQ-9 Depression Total Score: 3 01/19/20 24 10:43 AM EDT documented as of this encounter Care Teams Site Supervising Technical Operator Relationship Specialty Start Date End Date Cielo Altman MD [address] [place] [id number] PCP - General Family Medicine 10/16/23 documented as of this encounter
--- OUTSIDE RECORDS SUMMARY | 2024-08-02 14:41 | XMS_ITS | Encounter Summary ---
Author Organization [employer] Address [address] [facility] [address] [place] [address] Care Team Providers Care Molder Inflated Ball Name Role Phone Cielo Altman MD Primary Care Provider [phone] Reason for Visit * Reason Comments Med Refill Encounter Details Date Type Department Care Team (Late st Contact Info) Description 07/21/2024 Refill [facility] [address] [place] [address] Cynthia Mirza MD [address] [place] [address] Social History Tobacco Use Types Packs/Day Years [...] AM EDT documented as of this encounter Plan of Treatment Not on file documented as of this encounter Visit Diagnoses Not on filedocumented in this encounter Additional Health Concerns Assessment Noted Time PHQ-9 Depression Total Score: 3 01/19/20 24 10:43 AM EDT documented as of this encounter Care Teams Molder Inflated Ball Relationship Specialty Start Date End Date Cielo Altman MD [address] [place] [id number] PCP - General Family Medicine 10/16/23 documented as of this encounter
--- OUTSIDE RECORDS SUMMARY | 2024-08-02 14:41 | XMS_ITS | Clinical Summary ---
Author Organization [id number] Address [address] [place] [address] [address] [place] [address] Care Team Providers Care Vending Machine Filler Name Role Phone Cielo Altman MD Primary Care Provider [phone] Allergies Active Allergy Reactions Criticality Noted Date Comments Penicillins Angioedema 01/10/2023 Medications Lancets Thin misc Check BS bid 100 each 11 01/11/20 23 Active Blood Glucose Monitoring Suppl (FreeStyle Lite) device Inject under the skin 2 times daily. 1 each 01/11/20 23 Active betamethasone dipropionate (Diprolene) 0.05 % ointment Apply topically 2 times daily. 45 g 1 01/11/20 23 Active Blood Pressure Monitor kitIndications: Elevated BP without diagnosis of hypertension Check blood pressure once daily and as needed 1 kit 10/16/19 24 Active dulaglutide (Trulicity) 0.75 MG/0.5ML solution pen-injectorInd ications:Type 2 diabetes mellitus with other specified complication, without long-term current use of insulin ([facility]) Inject 0.75 mg under the skin 1 (one) time per week. 4 each 11 10/16/19 24 Active ciclopirox (Penlac) 8 % solution Apply topically at bedtime. 6 mL 3 07/01/19 25 Active metFORMIN XR (Glucophage-XR) 500 MG 24 hr tablet TAKE 2 TABLETS BY MOUTH TWICE DAILY 360 tablet 3 07/21/19 25 Active Tirzepatide (Mounjaro) 2.5 MG/0.5ML solution auto-injector Inject 2.5 mg under the skin 1 (one) time per week. 2 mL 11 08/03/19 25 Active terbinafine (LamISIL) 250 MG tablet Take 1 tablet (250 mg) by mouth Once per day. 84 tablet 08/03/19 25 025 Active losartan (Cozaar) 25 MG tablet Take 1/2 tablet by mouth once daily 45 tablet 3 08/03/19 25 Active cholecalciferol (Vitamin D-3) 50 MCG (1999 UT) tablet Take 1 tab orally once daily 90 tablet 11 08/03/19 25 Active metFORMIN, MOD, (Glumetza) 1000 MG 24 hr tablet Take 1 tab orally bid 60 tablet 11 01/11/20 23 025 Discontinued cholecalciferol (Vitamin D-3) 50 MCG (1999 UT) tablet Take 1 tab orally bid 60 tablet 11 01/11/20 23 025 Discontinued(Re order (will not trigger notification to Pharmacy)) losartan (Cozaar) 25 MG tablet Take 1/2 tablet by mouth once daily 45 tablet 3 10/16/19 24 025 Discontinued(Re order (will not trigger notification to Pharmacy)) acetaminophen (Tylenol Extra Strength) 500 MG tablet Take 1 tablet (500 mg) by mouth every 6 (six) hours if needed for mild pain. 120 tablet 07/01/19 25 025 ibuprofen 800 MG tablet Take 1 tablet (800 mg) by mouth if needed in the morning, at noon, and at bedtime for mild pain or moderate pain for up to 10 days. 30 tablet 07/01/19 25 025 azithromycin (Zithromax) 250 MG tablet Take 2 tabs PO daily x 1d then 1 tab PO daily on D2 to D5 6 tablet 07/01/19 25 025 Discontinued(Me d list cleanup (will not trigger notification to Pharmacy)) Active Problems Problem Noted Date Diagnosed Date Vitamin D deficiency 08/02/2024 Urinary incontinence 08/02/2024 Pharyngitis 07/01/2024 Assessment & Plan (07/01/2024 11:07 AM EST): Pt is allergic to Penicillin, I will get Rx for Z-Speedy. Take Tylenol alternating with Ibuprofen PRN. Do gargles with lemon, conrado, and honey, increase PO fluids, conrado tea. Out of work for 2 days, can return to work after 48 hours after antibiotics, return to clinic if she continues with symptoms. Onychomycosis 07/01/2024 Assessment & Plan (07/01/2024 11:08 AM EST): On toe nails. Rx for Penlac lotion to apply daily. Left elbow pain 01/21/2024 Assessment & Plan (01/21/2024 10:02 AM EDT): - with tender mass - ice, judicious use of NSAIDs - evaluate with US (unlikely to have a skeletal abnormality) for characterization of mass. Hypertension 10/16/2023 Assessment & Plan (01/19/2024 12:56 PM EDT): -Goal BP < 140/90 per JNC-8 and < 130/80 per ACC/AHA guideline (Treatment threshold >=130/80) -Continue working on lifestyle modifications -Recommended self-monitoring BP. -continue losartan 12.5 mg daily, consider increasing to 25 mg daily if SBP > 135 mmHg Assessment & Plan (10/19/2023 10:42 PM EDT): -Goal BP < 140/90 per JNC-8 and < 130/80 per ACC/AHA guideline (Treatment threshold >=130/80) -DBP is elevated -Continue working on lifestyle modifications -Recommended self-monitoring BP. -will start losartan 12.5 mg daily -Follow up in 3-6 mo, sooner if any problem arises History of DVT (deep vein thrombosis) 10/16/2023 Assessment & Plan (01/21/2024 9:59 AM EDT): - patient had DVT during , patient took coumadin - patient states that there is family history of DVT, will consider work-up for hypercoagulable disease Assessment & Plan (10/16/2023 12:27 PM EDT): - patient had DVT during , patient took coumadin - patient states that there is family history of DVT, will consider work-up for hypercoagulable disease Paronychia of fingers of both hands 01/10/2023 Diabetes mellitus, type 2 03/22/2015 Assessment & Plan (01/19/2024 12:59 PM EDT): - A1c 6.8% on 01/19/24, improved from 8.5%, in October 2023 - continue lifestyle modifications - continue checking BG - continue metformin - continue dulaglutide (Trulicity) 0.75 mg weekly - last eye exam: overdue, referred to eye care - last foot exam: 10/16/23 - last lipid profile: 10/16/23 - last microalbumin test: Overdue. Ordered, but patient has not completed it yet Assessment & Plan (10/16/2023 12:22 PM EDT): - A1c 8.5%, increased from previous A1c - continue lifestyle modifications - continue checking BG - continue metformin - start trulicity 0.75 mg weekly - last eye exam: overdue, referred to eye care - last foot exam: 10/16/23 - last lipid profile: overdue, will update today - last microalbumin test: overdue, will update today Phlebitis and thrombophlebitis 01/31/2012 Obesity 01/28/2012 Assessment & Plan (01/21/2024 10:01 AM EDT): - continue working on lifestyle modifications - has been on GLP1RA for diabetes mellitus type 2 since October 2023 - will refer to Weight Loss program with an option for endoscopic procedure. Assessment & Plan (10/16/2023 12:23 PM EDT): - continue working on lifestyle modifications - start trulicity Encounters Date Type Department Care Team Description 08/02/2024 11:30 AM EST Office Visit [facility] [address] [place] [phone] Cielo Altman MD Urinary incontinence, unspecified type (Primary Dx); Type 2 diabetes mellitus with other specified complication, without long-term current use of insulin ([facility]/HCC); Need for hepatitis B vaccination; Hair loss; Vitamin D deficiency; Dietary counseling; Exercise counseling; Class 3 severe obesity due to excess calories with serious comorbidity and body mass index (BMI) of 40.0 to 44.9 in adult (CMS/HCC) 08/02/2024 Travel 07/28/2024 Telephone [facility] [address] [place] [phone] Yue Goins MA chart prep 07/21/2024 Refill [facility] [address] [place] [phone] Cynthia Mirza MD 07/20/2024 Patient Outreach [facility] [address] [place] [address] [phone] Cielo Altman MD Pre-visit Planning (Pre-visit planning - unable to LVM phone number sounded busy ) 07/01/2024 10:30 AM EST Office Visit [facility] [address] [place] [phone] Roma Douglas MD Pharyngitis, unspecified etiology (Primary Dx); Onychomycosis; Sore throat; Body aches 05/16/2024 Refill [facility] [address] [place] [address] [phone] Cielo Altman MD from Last 3 Months Immunizations Name Administration Dates Next Due Hep B, adult 08/02/2024,01/19/2024 Influenza injectable quadriv alent IIV4 with preservative 07/21/2017 Influenza, Split (incl. purified surface antigen ) 02/27/2012 Pneumococcal Conjugate PCV 20 01/19/2024 Tdap 01/19/2024 Social History Tobacco Use Types Packs/Day Years Used Date Smoking Tobacco: Never Smokeless Tobacco: Never Tobacco Cessation:Counseling Given: Not Answered Alcohol Use Standard Drinks/Week Comments Never 0 [...] Orientation Straight 01/10/2023 11 :03 AM EDT Last Filed Vital Signs Vital Sign Reading Time Taken Comments Blood Pressure 150/100 08/02/2024 12:15 PM EST Pulse 83 08/02/2024 12:02 PM EST Temperature 36.3 ??C (97.3 ??F) 08/02/2024 12:[address] Respiratory Rate 13 08/02/2024 12:02 PM EST Oxygen Saturation 98% 08/02/2024 12:02 PM EST Inhaled Oxygen Concentration - - Weight 127 kg (279 lb) 08/02/2024 12:02 PM EST Height 173.5 cm (5' 8.32 ) 08/02/2024 12:[address] Body Mass Index 42.02 08/02/2024 12:02 PM EST Plan of Treatment Health Maintenance Due Date Last Done Comments Pap Smear 2001 Cervical Cancer Screening 2010 HPV/Cotest 2010 COVID-19 Vaccine ( season) 2024 Influenza Vaccine (#1) 2024 07/21/2017, 2011 Hepatitis B Vaccines (3 of 3 - 19+ 3-dose series) 09/27/2024 08/02/2024, 01/19/2024 SDOH Screening 10/07/2024 10/08/2023 Diabetes: Hemoglobin A1C 11/02/2024 025, 01/19/2024, 10/16/2023, Additional history exists Family Planning (PISQ) 11/02/2024 11/03/2023 Depression Screening 01/18/2025 01/19/2024, 01/19/20 24 Diabetes: Foot Exam 01/18/2025 01/19/2024 Alcohol/Substance Use Screening 08/02/2025 08/02/2024 Diabetes: Urine Protein Screening 08/02/2025 08/02/2024 Lipid Panel 08/02/2025 08/02/2024, 09/30, 01/13/2023 Tobacco Screening 08/02/2025 08/02/2024 Mammogram 01/11/2026 01/12/2024 Eye Exam 02/18/2026 02/19/2024, 01/31, 02/19/2024, Additional history exists Zoster Vaccines (1 of 2) 2030 DTaP/Tdap/Td Vaccines (2 - Td or Tdap) 01/18/2034 01/19/2024 RSV Patients and Patients Aged 60 years or older (1 - 1-dose 75+ series) 11/23/2055 HIV Screening Completed 01/13/2023 Hepatitis C Screening Completed 01/13/2023, 023 Pneumococcal Vaccine: Pediatrics (0 to 5 Years) and At-Risk Patients (6 to 49) Years) Completed 01/19/2024 HIB Vaccines Aged Out No longer eligi ble based on patient's age to complete this topic HPV Vaccines Aged Out No longer eligi ble based on patient's age to complete this topic Hepatitis A Vaccines Aged Out No long er eligible based on patient's age to complete this topic IPV Vaccines Aged Out No longer eligi ble based on patient's age to complete this topic Meningococcal Vaccine Aged Out No lynn yadi eligible based on patient's age to complete this topic RSV under 20 months Aged Out No longe r eligible based on patient's age to complete this topic Rotavirus Vaccines Aged Out No longer eligible based on patient's age to complete this topic Procedures Procedure Name Priority Date/Time Associated Diagnosis Comments URINALYSIS, COMPLETE, WITH REFLEX TO CULTURE Routine 08/02/2024 12:35 PM EST Urinary incontinence, unspecified type VITAMIN D,25-OH,TOTAL,IA Routine 08/02/2024 12:35 PM EST Vitamin D deficiency TSH W/REFLEX TO FT4 Routine 08/02/2024 1 2:35 PM EST Type 2 diabetes mellitus with other specified complication, without long-term current use of insulin (CMS/HCC) Hair loss COMPREHENSIVE METABOLIC PANEL Routine 08/02/2024 12:35 PM EST Type 2 diabetes mellitus with other specified complication, without long-term current use of insulin (CMS/HCC) ALBUMIN, RANDOM URINE W/CREATININE Routine 08/02/2024 12:35 PM EST Type 2 diabetes mellitus with other specified complication, without long-term current use of insulin (CMS/HCC) LIPID PANEL WITH REFLEX TO DIRECT LDL Routine 08/02/2024 12:35 PM EST Type 2 diabetes mellitus with other specified complication, without long-term current use of insulin (CMS/HCC) VITAMIN B12/FOLATE, SERUM PANEL Routine 08/02/2024 12:35 PM EST Type 2 diabetes mellitus with other specified complication, without long-term current use of insulin (CMS/HCC) POCT GLYCOSYLATED HEMOGLOBIN (HGB A1C) Routine 08/02/2024 12:04 PM EST Type 2 diabetes mellitus with other specified complication, without long-term current use of insulin (CMS/HCC) POCT GLUCOSE Routine 08/02/2024 12:03 PM EST Type 2 diabetes mellitus with other specified complication, without long-term current use of insulin (CMS/HCC) POCT RAPID STREP A Routine 07/01/2024 10 :46 AM EST Sore throat Body aches POCT RSV (ID NOW RAPID ANTIGEN) Routine 07/01/2024 10:46 AM EST Body aches POCT INFLUENZA B (ID NOW RAPID MOLECULAR) Routine 07/01/2024 10:46 AM EST Body aches POCT RAPID COVID ANTIGEN Routine 07/01/2024 10:46 AM EST Body aches POCT INFLUENZA A (ID NOW RAPID MOLECULAR) Routine 07/01/2024 10:46 AM EST Body aches BI MAMMOGRAM SCREENING TOMOSYNTHESIS BILATERAL Routine 01/12/2024 4:30 PM EDT Breast cancer screening by mammogram HEPATITIS PANEL, GENERAL Routine 01/13/2023 10:04 AM EDT Type 2 diabetes mellitus without complication, unspecified whether intermediate insulin use (CMS/HCC) HIV ANTIBODY/ANTIGEN ([place] DPH) Routine 01/13/2023 10:04 AM EDT from Last 3 Months or Most Recently Relevant to Health Maintenance Results * (ABNORMAL) Vitamin D, 25-Hydroxy, Total, Immunoassay (08/02/2024 12:35 PM EST) Vitamin D 25-OH Total 21.1(L) >30 ng/mL [facility] Comment:Health Based Referen ce Values*< 20 ng/mL Fettvwmbt65-57 ng/mL Insufficient> 30 ng/mL Sufficient*Moira CAO. N Engl J Med. 2007;357:266-280Care must be taken in interpreting Vitamin D results fromdifferent laboratories and methodologies. Published datademonstrated that results from patients undergoinghemodialysis may show a negative bias when tested withvarious automated 25-OH vitamin D assays when compared toLC-MS/MS.When testing samples from patients whose predominant form ofVitamin D is Vitamin D2, such as patients receiving VitaminD2 supplementation, results that are subtherapeutic shouldbe confirmed with another method such as LC-MS/MS. Blood Venous blood specimen / Unknown 08/02/2024 12:35 PM EST 08/02/2024 1:01 PM EST us Cielo Altman MD LAB BLOOD ORDERABLES Final Resul t Performing Organization Address City/[facility]/ZIP Co de Phone Number [facility] [address] [place] [address] [phone] * Vitamin B12 (Cobalamin) and Folate Panel, Serum (08/02/2024 12:35 PM EST) Vitamin B12 360 200 - 900 pg/mL [facility] Comment:NORMAL 200-900 PG/ML INDETERMINATE 160-199 PG/ML DEFICIENT < 160 PG/ML Folate 12.0 > or = 4.0 ng/mL [facility] Comment:Reference Values:> o r = 4.0 ng/mL< 4.0 ng/mL suggests folate deficiency Methotrexate, aminopterin and folinic acid(leucovorin) are chemotherapeutic agents whose molecularstructures are similar to folate; therefore, the Architectfolate assay cannot be used for patients using these drugs. Blood 08/02/2024 12:3 5 PM EST 08/02/2024 1:01 PM EST us Cielo Altman MD LAB BLOOD ORDERABLES Final Resul t Performing Organization Address [facility] Co de Phone Number [facility] [address] [place] [address] [phone] * Urinalysis, Complete, with Reflex to Culture (08/02/2024 12:35 PM EST) Color Urine Yellow [facility] Appearance Urine Clear [facility] PH 5.5 5.0 - 9.0 [facility] Glucose Urine UA Negative Negative mg/dL [facility] Urine Blood Negative Negative [facility] Specific Bedias - Urine 1.025 1.005 - 1.025 [facility] Urine Protein Negative Neg-Trace mg/dL [facility] Urine Ketones Negative Negative mg/dL [facility] Nitrite Urine Negative Negative [facility] Leukocyte Esterase Urine Negative Negative [facility] RBC Urine 0-2 0 - 2 /HPF [facility] Urine WBC 0-5 0 - 5 /HPF [facility] Urine Squamous Epithelial Cell 0-2 0 - 2 /HPF [facility] Urine Bacteria None Seen None Seen [facility] Hyaline Casts, Urine 0-2 0 - 2 /LPF [facility] Urine 08/02/2024 12:3 5 PM EST 08/02/2024 1:01 PM EST Narrative [facility] - 08/02/2024 1:22 PM EST Urine, Clean Catch Cielo Altman MD LAB URINE ORDERABLES Final Resul t Performing Organization Address [facility] [place] Phone Number [facility] [address] [place] [phone] * TSH with Reflex to Free T4 (08/02/2024 12:35 PM EST) TSH reflex Free T4 1.46 0.32 - 4.0 uIU/mL [facility] Blood 08/02/2024 12:3 5 PM EST 08/02/2024 1:01 PM EST Cielo Altman MD LAB BLOOD ORDERABLES Final Resul t Performing Organization Address [facility] [place] Phone Number [facility] [address] [place] [phone] * (ABNORMAL) Lipid Panel with Reflex to Direct LDL (08/02/2024 12:35 PM EST) Triglycerides 94 <150 mg/dL [facility] Comment:Desirable Triglyceri de: less than 150 mg/dLBorderline High Triglyceride 150-199 mg/dLHigh Triglyceride: 200-499 mg/dLVery High Triglyceride: greater than or equal to 5OO mg/dL Cholesterol 185 <200 mg/dL [facility] Comment:Desirable Cholestero l: less than 200 mg/dLBorderline High Cholesterol: 200-239 mg/dLHigh Cholesterol: greater than 239 mg/dL LDL Cholesterol Calculated 109(H) <100 mg/dL [facility] Comment:Desirable LDL: less than 100 mg/dLNear Optimal/Above Optimal LDL: 110- 129 mg/dLBorderline High LDL: 130-159 mg/dLHigh LDL: 160-189 mg/dLVery High LDL: greater than or equal to 190 mg/dL HDL Cholesterol 58 >40 mg/dL [facility] Comment:Desirable HDL: great er than 40 mg/dL Note: This HDL assay may give artificially low results in patients with liver disease. Blood 08/02/2024 12:3 5 PM EST 08/02/2024 1:01 PM EST Cielo Altman MD LAB BLOOD ORDERABLES Final Resul t Performing Organization Address [facility] Co de Phone Number [facility] [address] [place] [phone] * Albumin, Random Urine W/Creatinine (08/02/2024 12:35 PM EST) Creatinine, Urine 124.58 mg/dL [facility] Microalbumin Urine 9.0 mg/L [facility] Microalbum Creatinine Ratio Ur 7.2 <30 ug/mg cr [facility] Comment:Albumin/Creatinine R atio Reference Ranges: Normal: < 30 ug/mg creatinine Microalbuminuria: 30 - 300 ug/mg creatinineClinical Albuminuria: > 300 ug/mg creatinine Urine 08/02/2024 12:3 5 PM EST 08/02/2024 1:01 PM EST Cielo Altman MD LAB URINE ORDERABLES Final Resul t Performing Organization Address [facility] Co de Phone Number [facility] [address] [place] [phone] * (ABNORMAL) Comprehensive Metabolic Panel (08/02/2024 12:35 PM EST) Sodium 140 135 - 145 mmol/L [facility] Potassium 3.7 3.3 - 5.1 mmol/L [facility] Chloride 104 96 - 108 mmol/L [facility] Carbon Dioxide 28 22 - 29 mmol/L [facility] Anion Gap 12 12 - 20 [facility] Urea Nitrogen (BUN) 11 9 - 16 mg/dL [facility] Creatinine, Serum 0.68 0.5 - 1.4 mg/dL [facility] Estimated Glomerular Filt Rate >60 [facility] Comment:Chronic Kidney Disea se: Estimated GFR < 60 mL/min/[id number] Kidney Disease: Estimated GFR < 15 mL/min/1.73m2 Glucose 116(H) 60 - 115 mg/dL [facility] Calcium 8.7 8.4 - 10.2 mg/dL [facility] Bilirubin, Total 0.2 0.0 - 1.0 mg/dL [facility] Aspartate Amino Transferase 20 5 - 31 U/L [facility] Alanine Aminotransferase 13 0 - 31 U/L [facility] Total Protein 7.4 6.5 - 8.0 g/dL [facility] Albumin Level 3.8 3.5 - 5.0 g/dL [facility] Alkaline Phosphatase 94 39 - 117 U/L [facility] Blood Venous blood specimen / Unknown 08/02/2024 12:35 PM EST 08/02/2024 1:01 PM EST Cielo Altman MD LAB BLOOD ORDERABLES Final Resul t [facility] [address] [place] [address] [phone] * (ABNORMAL) POCT glycosylated hemoglobin (Hgb A1c) (08/02/2024 12:04 PM EST) Hemoglobin A1C 7.5(A) 4.0 - 6.0 % QC Media Lot # [id number] Lot# Expiration Date Blood Capillary blood specimen / Unknown 08/02/2024 12:04 PM EST Cielo Altman MD POINT OF CARE TEST ENTER/EDIT OR DERABLES Final Result * POCT glucose manually resulted (08/02/2024 12:03 PM EST) Pathologist [facility] Glucose Blood, POC 140 60 - 200 mg/dL QC Media Lot # [id number] Lot# Expiration Date [id number] Blood Capillary blood specimen / Unknown 08/02/2024 12:03 PM EST Cielo Altman MD POINT OF CARE TEST ENTER/EDIT OR DERABLES Final Result * POCT Rapid RSV ARRIAGA ID NOW (07/01/2024 10:46 AM EST) Pathologist [facility] RSV Rapid Ag POC Negative Negative QC Media Lot # [id number] Lot# Expiration Date [id number] Swab 07/01/2024 10:4 6 AM EST Roma Douglas MD POINT OF CARE TEST ENTER /EDIT ORDERABLES Final Result * POCT Rapid Influenza B ARRIAGA ID NOW (07/01/2024 10:46 AM EST) Pathologist [facility] Influenza B Negative Negative, Indeterminate [facility] QC Media Lot # [id number] [facility] Lot# Expiration Date [facility] Swab 07/01/2024 10:4 6 AM EST Roma Douglas MD POINT OF CARE TEST ENTER /EDIT ORDERABLES Final Result [facility] [address] [place] [address] [phone] * POCT Rapid Influenza A ARRIAGA ID NOW (07/01/2024 10:46 AM EST) Influenza A Negative Negative, Indeterminate [facility] QC Media Lot # [id number] [facility] Lot# Expiration Date [facility] Swab 07/01/2024 10:4 6 AM EST Roma Douglas MD POINT OF CARE TEST ENTER /EDIT ORDERABLES Final Result Performing Organization Address [facility] Co de Phone Number [facility] [address] [place] [phone] * POCT Rapid Covid-19 BinaxNOW (07/01/2024 10:46 AM EST) Rapid COVID Ag Negative [facility] QC Media Lot # [id number] [facility] Lot# Expiration Date [id number] [facility] Swab 07/01/2024 10:4 6 AM EST Roma Douglas MD POINT OF CARE TEST ENTER /EDIT ORDERABLES Final Result Performing Organization Address [facility] de Phone Number [facility] [address] [place] [phone] * POCT Rapid Strep A OSOM (07/01/2024 10:46 AM EST) [facility] Rapid Strep A Screen Negative Negative, None Detected QC Media Lot # [id number] Lot# Expiration Date [id number] Swab 07/01/2024 10:4 6 AM EST Roma Douglas MD POINT OF CARE TEST ENTER /EDIT ORDERABLES Final Result * BI Mammogram Screening Tomosynthesis Bilateral (01/12/2024 4:30 PM EDT) Anatomical Region Laterality Modality Breast Bilateral Mammography 01/12/2024 4:30 PM EDT Narrative 01/13/2024 7:02 AM EDT ? [place] [facility] ? [address] ?[place] [address] ? Mammography Report ? Signed ? Patient: Larson Cummings,Azra ?MR#: ?? [id number] ? : 1980 ?Acct:[id number] ? Age/Sex: 43 / F ?ADM Date: 08/12/24 ? Loc: HO.MAMMO ? Attending Dr: Cielo Altman MD ? Ordering Physician: Cielo Altman MD ?Results: 1Negative ? Date of Service: 01/12/24 ?Follow Up: 1 Year From Orig ?? inal Mammogram ? Procedure(s): MM tomosynthesis screening BI ?? Accession Number(s): [id number] ? cc: Cielo Altman MD ? EXAMINATION: ?? MM SCREENING DIGITAL BREAST TOMOSYNTHESIS, BILATERAL ? CLINICAL INFORMATION: ? Screening. Asymptomatic. ? COMPARISON: ?? Mammography: This is a baseline study. ? TECHNIQUE: ?? Digital breast tomosynthesis is performed in both the craniocaudal and ?? mediolateral oblique views along with computer-aided detection (CAD). ?? Synthesized 2D images are generated from the tomosynthesis. ? FINDINGS: ?? The breasts are almost entirely fatty (ACR BI-RADS breast composition ?? Category a). ? There are no significant masses, abnormal calcifications, or other ?? abnormalities. ? MM/MM tomosynthesis screening BI ?? IMPRESSION: ?? No mammographic evidence of malignancy. ? ASSESSMENT: ? BI-RADS BI-RADS 1 - Negative ? RECOMMENDATION: ?? Routine annual mammography screening. ? 1 year F/U ? This examination should not preclude the clinical evaluation of a ?? suspicious palpable abnormality. ? This patient's information was entered into a reminder system with a ?? target due date for their next mammogram. ? Dictated By: ?Maya Miles MD ? Signed By: ?<Electronically signed by Maya Miles MD in OV> ? 01/13/24 0657 ? DD/ 1630 ? TD/TT: ? Drama Teacher: ? Procedure Note Donotmalloryinterpreter, Image - 01/13/2024 [place] [facility] [address] [place] [address] Mammography Report Signed Patient: Mohan Desir#: [id number] : 1980Acct:[id number] Age/Sex: 43 / FADM Date: 01/12/24 Loc: ISIDRO Attending Dr: Cielo Altman MD Ordering Physician: Cielo Altman MDResults: 1Negative Date of Service: 01/12/24Follow Up: 1 Year From Orig inal Mammogram Procedure(s): MM tomosynthesis screening BI Accession Number(s): [id number] cc: Cielo Altman MD EXAMINATION: MM SCREENING DIGITAL BREAST TOMOSYNTHESIS, BILATERAL CLINICAL INFORMATION: Screening. Asymptomatic. COMPARISON: Mammography: This is a baseline study. TECHNIQUE: Digital breast tomosynthesis is performed in both the craniocaudal and mediolateral oblique views along with computer-aided detection (CAD). Synthesized 2D images are generated from the tomosynthesis. FINDINGS: The breasts are almost entirely fatty (ACR BI-RADS breast composition Category a). There are no significant masses, abnormal calcifications, or other abnormalities. MM/MM tomosynthesis screening BI IMPRESSION: No mammographic evidence of malignancy. ASSESSMENT: BI-RADS BI-RADS 1 - Negative RECOMMENDATION: Routine annual mammography screening. 1 year F/U This examination should not preclude the clinical evaluation of a suspicious palpable abnormality. This patient's information was entered into a reminder system with a target due date for their next mammogram. Dictated By: Maya Miles MD Signed By: <Electronically signed by Maya Miles MD in OV> 01/13/24 0657 DD/ 1630 TD/TT: Drama Teacher: us Cielo Altman MD IMG BI PROCEDURES Edited Result - Final * HIV Ab/Ag ([facility]) (01/13/2023 10:04 AM EDT) HIV AB/AG Nonreactive Nonreactive [facility] Comment:HIV-1 p24 Ag and/or HIV-1/HIV-2 Ab not detected.A test result that is nonreactive does not exclude thepossibility of exposure to or infection with HIV-1 and/orHIV-2. Nonreactive results in this assay for individualswith prior exposure to HIV-1 and/or HIV-2 may be due toantigen and antibody levels that are below the limit ofdetection of this assay.The [facility] HIV Ag/Ab Combo assay result andsupplemental assay results should be interpreted inconjunction with the patient's clinical presentation,history and other laboratory results. If the results areinconsistent with clinical evidence, additional testing issuggested to confirm the result. 01/13/2023 10:0 4 AM EDT 01/13/2023 11:46 AM EDT us Cynthia Mirza MD LAB BLOOD ORDERABLES Final Re sult [facility] [address] [place] [phone] * Hepatitis Panel, General (01/13/2023 10:04 AM EDT) Hepatitis A IgM Nonreactive Nonreactive [facility] Comment:IgM antibodies to NELSON V not detected; does not exclude earlyacute or recovered HAV infection. ~Hepatitis B Surface Antibody NONREACTIVE Nonreactive [facility] Comment:Nonreactive: < 8.00 mIU/mL Hepatitis B Core Antibody Nonreactive Nonreactive [facility] Hepatitis C Antibody Nonreactive Nonreactive [facility] Comment:Antibodies to HCV no t detected; does not exclude early acuteHCV infection. Hepatitis B Surface Ag Negative Negative [facility] Blood 01/13/2023 10:0 4 AM EDT 01/13/2023 11:46 AM EDT us Cynthia Mirza MD LAB BLOOD ORDERABLES Final Re sult [facility] [address] [place] [phone] from Last 3 Months or Most Recently Relevant to Health Maintenance Insurance [facility] [employer] F[employer] Care Teams Vending Machine Filler Relationship Specialty Start Date End Date Cielo Altman MD [address] [place] [phone] PCP - General Family Medicine 10/16/23
--- OUTSIDE RECORDS SUMMARY | 2024-08-02 14:41 | XMS_ITS | Encounter Summary ---
Author Organization [employer] Address [address] [place] [address] [address] [place] [address] Care Team Providers Care Optical Fabricator Name Role Phone Cielo Altman MD Primary Care Provider [phone] Reason for Visit * Reason Onset Date Comments chart prep 07/28/2024 Encounter Details Date Type Department Care Team ([facility] st Contact Info) Description 07/28/2024 Telephone [facility] [address] [place], [place] [phone] Yue Goins [place] chart prep Social History Tobacco Use Types Packs/Day Years [...] AM EDT documented as of this encounter Miscellaneous Notes * Telephone Encounter - Yue Goins [place] - 07/28/2024 10:04 AM EST ..chart Prep Labs: not applicable Images: not applicable Vaccines due: Covid Due, Hep B Due, and Flu Due Referrals: Completed Screenings: PAP Overdue care gaps: A1C, Glucose, and Sbirt documented in this encounter Plan of Treatment Not on file documented as of this encounter Visit Diagnoses Not on filedocumented in this encounter Additional Health Concerns Assessment Noted Time PHQ-9 Depression Total Score: 3 01/19/20 24 10:43 AM EDT documented as of this encounter Care Teams Optical Fabricator Relationship Specialty Start Date End Date Cielo Altman MD [address] [place] [phone] PCP - General Family Medicine 10/16/23 documented as of this encounter
--- OUTSIDE RECORDS SUMMARY | 2024-08-02 14:41 | XMS_ITS | Encounter Summary ---
Author Organization [employer] Address [address] [facility] [address] [place] [address] Care Team Providers Care Mattress Stuffer Name Role Phone Cielo Altman MD Primary Care Provider [phone] Encounter Details Date Type Department Care Team (Latest Contact Info) Description 08/02/2024 Travel Social History Tobacco Use Types Packs/Day Years [...] Time PHQ-9 Depression Total Score: 3 01/19/20 10:43 AM EDT documented as of this encounter Care Teams Mattress Stuffer Relationship Specialty Start Date End Date Cielo Altman MD [address] [place] [address] PCP - General Family Medicine 10/16/23 documented as of this encounter
--- OUTSIDE RECORDS SUMMARY | 2024-08-02 14:41 | XMS_ITS | Encounter Summary ---
Author Organization [employer] Address [address] [place] [address] [address] [place] [address] Care Team Providers Care Chemical Cell Changer Name Role Phone Cielo Altman MD Primary Care Provider [phone] Encounter Details Date Type Department Care Team (Late st Contact Info) Description 08/02/2024 11:30 AM EST Office Visit [facility] [address] [place], [place] [phone] Cielo Altman MD [address] [place], [place] [phone] Urinary incontinence, unspecified type (Primary Dx); Type 2 diabetes mellitus with other specified complication, without long-term current use of insulin ([facility]); Need for hepatitis B vaccination; Hair loss; Vitamin D deficiency; Dietary counseling; Exercise counseling; Class 3 severe obesity due to excess calories with serious comorbidity and body mass index (BMI) of 40.0 to 44.9 in adult ([facility]/HCC) Social History Tobacco Use Types Packs/Day Years [...] the past 12 months, has t he [employer], gas, oil or water company threatened to [...] AM EDT documented as of this encounter Last Filed Vital Signs Vital Sign Reading [...] Mass Index 42.02 08/02/2024 12:02 PM EST documented in this encounter Plan of Treatment Not on file documented as of this encounter Procedures Procedure Name Priority Date/Time Associated Diagnosis Comments VITAMIN D,25-OH,TOTAL,IA Routine 08/02/2024 12:35 PM EST Vitamin D deficiency VITAMIN B12/FOLATE, SERUM PANEL Routine 08/02/2024 12:35 PM EST Type 2 diabetes mellitus with other specified complication, without long-term current use of insulin ([facility]) URINALYSIS, COMPLETE, WITH REFLEX TO CULTURE Routine 08/02/2024 12:35 PM EST Urinary incontinence, unspecified type TSH W/REFLEX TO FT4 Routine 08/02/2024 1 2:35 PM EST Type 2 diabetes mellitus with other specified complication, without long-term current use of insulin ([facility]) Hair loss LIPID PANEL WITH REFLEX TO DIRECT LDL Routine 08/02/2024 12:35 PM EST Type 2 diabetes mellitus with other specified complication, without long-term current use of insulin ([facility]) ALBUMIN, RANDOM URINE W/CREATININE Routine 08/02/2024 12:35 PM EST Type 2 diabetes mellitus with other specified complication, without long-term current use of insulin ([facility]) COMPREHENSIVE METABOLIC PANEL Routine 08/02/2024 12:35 PM EST Type 2 diabetes mellitus with other specified complication, without long-term current use of insulin ([facility]) POCT GLYCOSYLATED HEMOGLOBIN (HGB A1C) Routine 08/02/2024 12:04 PM EST Type 2 diabetes mellitus with other specified complication, without long-term current use of insulin ([facility]) POCT GLUCOSE Routine 08/02/2024 12:03 PM EST Type 2 diabetes mellitus with other specified complication, without long-term current use of insulin ([facility]) documented in this encounter Results * Urinalysis, Complete, with Reflex to Culture (08/02/2024 12:35 PM EST) Color Urine Yellow [facility] Appearance Urine Clear [facility] PH 5.5 5.0 - 9.0 [facility] Glucose Urine UA Negative Negative mg/dL [facility] Urine Blood Negative Negative [facility] Specific [place] - Urine 1.025 1.005 - 1.025 [facility] Urine Protein Negative Neg-Trace mg/dL [facility] Urine Ketones Negative Negative mg/dL [facility] Nitrite Urine Negative Negative [facility] Leukocyte Esterase Urine Negative Negative [facility] RBC Urine 0-2 0 - 2 /HPF [facility] Urine WBC 0-5 0 - 5 /HPF [facility] Urine Squamous Epithelial Cell 0-2 0 - 2 /HPF [facility] Urine Bacteria None Seen None Seen [facility] Hyaline Casts, Urine 0-2 0 - 2 /LPF [facility] Urine 08/02/2024 12:3 5 PM EST 08/02/2024 1:01 PM EST Narrative [facility] - 08/02/2024 1:22 PM EST Urine, Clean Catch Cielo Altman MD LAB URINE ORDERABLES Final Resul t [facility] [address] [place] [phone] * (ABNORMAL) Vitamin D, 25-Hydroxy, Total, Immunoassay (08/02/2024 12:35 PM EST) Vitamin D 25-OH Total 21.1(L) >30 ng/mL [facility] Comment:Health Based Referen ce Values*< 20 ng/mL [id number] ng/mL Insufficient> 30 ng/mL Sufficient*Moira CAO. N [...] ORDERABLES Final Resul t Performing Organization Address City/[facility]/ZIP Co de Phone Number [facility] [address] [place] [phone] * TSH with Reflex to Free T4 (08/02/2024 12:35 PM EST) TSH reflex Free T4 1.46 0.32 - 4.0 uIU/mL [facility] Blood 08/02/2024 12:3 5 PM EST 08/02/2024 1:01 PM EST Cielo Altman MD LAB BLOOD ORDERABLES Final Resul t Performing Organization Address [facility]/ZIP Co de Phone Number [facility] [address] [place] [phone] * (ABNORMAL) Comprehensive Metabolic Panel (08/02/2024 12:35 PM EST) Sodium 140 135 - 145 mmol/L [facility] Potassium 3.7 3.3 - 5.1 mmol/L [facility] Chloride 104 96 - 108 mmol/L [facility] Carbon Dioxide 28 22 - 29 mmol/L [facility] Anion Gap 12 12 - 20 [facility] Urea Nitrogen (BUN) 11 9 - 16 mg/dL [facility] Creatinine, Serum 0.68 0.5 - 1.4 mg/dL [facility] Estimated Glomerular Filt Rate >60 [facility] Comment:Chronic Kidney Disea se: Estimated GFR < 60 mL/min/1.81i5Skplgz Kidney Disease: Estimated GFR < 15 mL/min/1.73m2 Glucose 116(H) 60 - 115 mg/dL [facility] Calcium 8.7 8.4 - 10.2 mg/dL [facility] Bilirubin, Total 0.2 0.0 - 1.0 mg/dL [facility] Aspartate Amino Transferase 20 5 - 31 U/L [facility] Alanine Aminotransferase 13 0 - 31 U/L [facility] Total Protein 7.4 6.5 - 8.0 g/dL [facility] Albumin Level 3.8 3.5 - 5.0 g/dL [facility] Alkaline Phosphatase 94 39 - 117 U/L [facility] Blood Venous blood specimen / Unknown 08/02/2024 12:35 PM EST 08/02/2024 1:01 PM EST us Cielo Altman MD LAB BLOOD ORDERABLES Final Resul t Performing Organization Address City/[facility] Co de Phone Number [facility] [address] [place] [phone] * Albumin, Random Urine W/Creatinine (08/02/2024 12:35 PM EST) Creatinine, Urine 124.58 mg/dL [facility] Microalbumin Urine 9.0 mg/L [facility] Microalbum Creatinine Ratio Ur 7.2 <30 ug/mg cr [facility] Comment:Albumin/Creatinine R atio Reference Ranges: Normal: < 30 ug/mg creatinine Microalbuminuria: 30 - 300 ug/mg creatinineClinical Albuminuria: > 300 ug/mg creatinine Urine 08/02/2024 12:3 5 PM EST 08/02/2024 1:01 PM EST us Cielo Altman MD LAB URINE ORDERABLES Final Resul t Performing Organization Address [facility] Co de Phone Number [facility] [address] [place] [phone] * (ABNORMAL) Lipid Panel with Reflex to Direct LDL (08/02/2024 12:35 PM EST) Triglycerides 94 <150 mg/dL [facility] Comment:Desirable Triglyceri de: less than 150 mg/dLBorderline High Triglyceride 150-199 mg/dLHigh Triglyceride: 200-499 mg/dLVery High Triglyceride: greater than or equal to 5OO mg/dL Cholesterol 185 <200 mg/dL [facility] Comment:Desirable Cholestero l: less than 200 mg/dLBorderline High Cholesterol: 200-239 mg/dLHigh Cholesterol: greater than 239 mg/dL LDL Cholesterol Calculated 109(H) <100 mg/dL [facility] Comment:Desirable LDL: less than 100 mg/dLNear Optimal/Above Optimal LDL: 110- 129 mg/dLBorderline High LDL: 130-159 mg/dLHigh LDL: 160-189 mg/dLVery High LDL: greater than or equal to 190 mg/dL HDL Cholesterol 58 >40 mg/dL [facility] Comment:Desirable HDL: great er than 40 mg/dL Note: This HDL assay may give artificially low results in patients with liver disease. Blood 08/02/2024 12:3 5 PM EST 08/02/2024 1:01 PM EST Cielo Altman MD LAB BLOOD ORDERABLES Final Resul t Performing Organization Address [facility] Co de Phone Number [facility] [address] [place] [phone] * Vitamin B12 (Cobalamin) and Folate Panel, Serum (08/02/2024 12:35 PM EST) Vitamin B12 360 200 - 900 pg/mL [facility] Comment:NORMAL 200-900 PG/ML INDETERMINATE 160-199 PG/ML DEFICIENT < 160 PG/ML Folate 12.0 > or = 4.0 ng/mL [facility] Comment:Reference Values:> o r = 4.0 ng/mL< 4.0 ng/mL suggests folate deficiency Methotrexate, aminopterin and folinic acid(leucovorin) are chemotherapeutic agents whose molecularstructures are similar to folate; therefore, the Architectfolate assay cannot be used for patients using these drugs. Blood 08/02/2024 12:3 5 PM EST 08/02/2024 1:01 PM EST Cielo Altman MD LAB BLOOD ORDERABLES Final Resul t Performing Organization Address [facility] Co de Phone Number [facility] [address] [place] [phone] * (ABNORMAL) POCT glycosylated hemoglobin (Hgb A1c) (08/02/2024 12:04 PM EST) Hemoglobin A1C 7.5(A) 4.0 - 6.0 % QC Media Lot # [id number] Lot# Expiration Date Blood Capillary blood specimen / Unknown 08/02/2024 12:04 PM EST Cielo Altman MD POINT OF CARE TEST ENTER/EDIT OR DERABLES Final Result * POCT glucose manually resulted (08/02/2024 12:03 PM EST) Glucose Blood, POC 140 60 - 200 mg/dL QC Media Lot # [id number] Lot# Expiration Date Blood Capillary blood specimen / Unknown 08/02/2024 12:03 PM EST Cielo Altman MD POINT OF CARE TEST ENTER/EDIT OR DERABLES Final Result documented in this encounter Visit Diagnoses Diagnosis Urinary incontinence, unspecified type- Primary Type 2 diabetes mellitus with other specified complication, without long-term current use of insulin ([facility]) Need for hepatitis B vaccination Hair loss Unspecified alopecia Vitamin D deficiency Dietary counseling Dietary surveillance and counseling Exercise counseling Class 3 severe obesity due to excess calories with serious comorbidity and body mass index (BMI) of 40.0 to 44.9 in adult (CMS/HCC) documented in this encounter Additional Health Concerns Assessment Noted Time PHQ-9 Depression Total Score: 3 01/19/20 24 10:43 AM EDT documented as of this encounter Care Teams Chemical Cell Changer Relationship Specialty Start Date End Date Cielo Altman MD [address] [place] [address] PCP - General Family Medicine 10/16/23 documented as of this encounter
== END 2024-08-02 12:33 | disposition home or self-care (01) ==
LOC: HO.HHCL 12:32
PROVIDERS: Visit Provider Family Medicine
DX: E11.69 Type 2 diabetes mellitus with other specified complication (principal); L65.9 Nonscarring hair loss, unspecified; E55.9 Vitamin D deficiency, unspecified; R32 Unspecified urinary incontinence
CPT/HCPCS: 36415; 80053; 80061; 81001; 82043; 82306; 82570; 82607; 82746; 84443

== ENCOUNTER 2024-11-17 13:38 | Outpatient (AMB) | payer MEDICAID, SELFPAY ==
--- NOTE | 2024-11-17 13:40 | A.OFFVIS_ITS ---
Vital Signs 11/17/24 13:51 Height 5 ft 8 in Weight 250 lb BMI 38.0 Intake Visit Reasons: INJ- LT knee Intake Note: Azra is a 43 year old female who presents today for a left knee injection, last injection 12/29/23. Patient states would like to repeat cortisone injection today, stating last injection provided her with relief for about 5 months. Allergies Penicillins Allergy (Verified 11/17/24 13:52) Rash Medication List - Last Reconciled 11/17/24 by Piper Camacho PA-C ibuprofen 800 mg PO Q8H PRN metformin 1,000 mg PO BID HPI HPI INJ- LT knee: Details: 43 yo female presents to the office today f/u lt knee pain s/p injection. She states she had the injection which was helpful but she has some increased pain over the last few weeks which is limiting her activity. 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 Review of Systems Const All systems reviewed & are unremarkable except as noted in HPI and below Physical Exam Const General: cooperative, healthy appearing, comfortable and no acute distress Orientation/consciousness: patient oriented x3 HEENT Head: Yes normal to inspection, Yes normocephalic and Yes atraumatic Eyes General: appearance normal, both eyes and all related structures Neck Neck: Yes normal visual inspection and Yes no JVD Chest Chest palpation & inspection: normal inspection of the chest Resp Effort & Inspection: normal respiratory effort Auscultation: clear to auscultation bilaterally, crackles (no), rales (no), rhonchi (no) and wheezes (no) Cardio Jugular venous distension: no JVD Rate: regular rate Rhythm: regular rhythm Heart sounds: S1 normal heart sound present, S2 normal heart sound present, Murmur heart sound present (no) and Rub heart sound present (no) Peripheral pulses: Peripheral pulses 2+ throughout GI Palpation (GI): Soft to palpation Skin Lesions: no lesions Rashes: no rashes Neuro General: patient oriented x3 Extrem Other: Left knee skin intact, no erythema or joint effusion. Tenderness along the lateral joint line. Full ROM with crepitus. Negative Vaishali?s. No ligamentous laxity. NVI. General: Yes normal to inspection, Yes no pedal edema and Yes no calf tenderness Psych Appearance: grossly normal Mental Status: mental status grossly normal Speech and movement: Normal speech and movement present Office Procedures AMB Joint Injection/Aspiration Joint Injection/Aspiration Primary Site: left knee Prep: site was prepped using aseptic technique, ethochloride spray was applied and injection warnings given Injected: 40 mg of, DepoMedrol, with 8 mL of, 1% plain lidocaine and in the joint Approach Used: anterolateral Procedure: The patient tolerated the procedure well and there was some relief with the local anesthesia Coding 72981 - Glenohumeral/Tronchanteric Bursa/Intraarticular Procedure code (CPT) selection complete Assessment & Plan Assessment & Plan (1) Osteoarthritis of left knee: Code(s): M17.12 - Unilateral primary osteoarthritis, left knee Category: Medical Qualifiers: Osteoarthritis type: primary Qualified Code(s): M17.12 - Unilateral primary osteoarthritis, left knee Plan: We discussed options today which includes a repeat injection which the patient did consent to. Patient tolerated procedure well. She will continue with activities as tolerated and if symptoms arise or there is any concerns she will contact our office otherwise follow up as needed. Coding Level of Care Code Est Pt Level 3 (18422) Complex EM visit Add On G2211 Diagnoses Primary osteoarthritis of left knee M17.12 Osteoarthritis type: primary CPT Codes Coding - Joint 7: 50966 - Glenohumeral/Tronchanteric Bursa/Intraarticular ([id number])
[2024-11-17 13:51] VITALS: BMI 38.0
--- OUTSIDE RECORDS SUMMARY | 2024-11-17 15:39 | XMS_ITS | Encounter Summary ---
Author Organization [employer] Address [address] [place] [address] Care Team Providers Care Banquet Line Cook Name Role Phone Cielo Altman MD Primary Care Provider [phone] Encounter Details Date Type Department Care Team ([facility] st Contact Info) Description 11/12/2024 Orders Only [facility] [address], [place] [phone] Cielo Altman MD [address] [place], [place] [phone] Social History Tobacco Use Types Packs/Day Years [...] housing situation today? I have nile jones 11/08/[address] you li ve. Do you have problems with any of the following? None of the above 11/08/2024 Food Insecurity Answer Date Recorded Within the past 12 months, y ou worried that your food would run out before you got money to buy more: Never True 11/08/2024 Within the past 12 months,th e food you bought just didn't last and you didn't have enough money to get more: Never True 01/2025 Transportation Answer Date Recorded In the past 12 months, has l ack of transportation kept you from medical appts, meetings, work or from getting things needed for daily living? No 11/08/2024 Utilities Answer Date Recorded In the past 12 months, has t he electric, gas, oil or water company threatened to shut off services in your home? No 11/08/2024 Depression Answer Date Recorded Patient Health Questionnaire-2 Score 1 01/19/2024 Internet Access Answer Date Recorded Internet Access Q1 Yes 11/08/2024 Internet Access Q2 Not on file 11/08/2024 Comments No Sex and Gender Information Value [...] documented as of this encounter Care Teams Banquet Line Cook Relationship Specialty Start Date End Date Cielo Altman MD [address] [place] [id number] PCP - General Family Medicine 10/16/23 documented as of this encounter
== END 2024-11-17 14:23 | disposition home or self-care (01) ==
LOC: HO.HOS 13:39
PROVIDERS: PCP Family Medicine; Visit Provider Physician Assistant
DX: M17.12 Unilateral primary osteoarthritis, left knee (principal)
CPT/HCPCS: 20610; 99213

== ENCOUNTER → 2024-11-17 13:38 | Outpatient (BNVA) | payer MEDICAID, OTHER, SELFPAY | PROVIDERS: PCP Family Medicine; Visit Provider Physician Assistant | DX: M17.12 Unilateral primary osteoarthritis, left knee (principal) | CPT/HCPCS: 20610; 99212; J1010; J2003 ==